=== PATIENT | male | born 1960 | race African-American/Black ===

== ENCOUNTER 2024-01-30 10:00 | Emergency (ER) | payer OTHER ==
[2024-01-30] VITALS (22 sets, daily range): BP systolic 113–202; BP diastolic 66–111
[2024-01-30] MEDS ORDERED: SODIUM CHLORIDE 0.9% 1,000 ML IV ONE ×2 (10:10→11:30)
[2024-01-30] MEDS ORDERED: ISOVUE-300 (Iopamidol) 100 ML SDV IV ONE ×2 (10:10)
[2024-01-30 10:34] LABS: BASO% 0.6 % (0-3); EOS% 1.8 % (0-8); HEMOGLOBIN 15.7 g/dl (14.0-18.0); IMMATURE GRANULOCYTES 0.2 % (0.0-5.0); LYMPH% 39.6 % (15-41); MEAN CELL VOLUME 100.6 fL CALC (80.0-100.0); MEAN CORPUSCULAR HGB 31.6 pG CALC (26.0-32.0); MEAN CORPUSCULAR HGB CONC 31.4 g/dL CAL (32.0-36.0); MONO% 9.2 % (2-13); NEUT# 2.36 thou/uL (1.82-7.42); NEUT% 48.6 % (42-76); RED BLOOD COUNT 4.97 mill/uL (4.70-6.10); RED CELL DISTRI WIDTH 13.6 % (11.5-15.5)
[2024-01-30] MEDS ORDERED: LORazepam 2 MG/ML ONE (10:35)
[2024-01-30] MEDS ORDERED: MIDAZOLAM HCL 2 MG/2 ML VIAL IV ONE (10:40)
[2024-01-30] MEDS ORDERED: ROCURONIUM BROMIDE 10 MG/ML 5ML VIAL IV ONE (10:40)
[2024-01-30] MEDS ORDERED: PROPOFOL 100 ML IV ONE ×2 (10:40→15:20)
[2024-01-30] MEDS ORDERED: KETAMINE HCL 50 MG/ML 10 ML VIAL IV ONE (10:40)
[2024-01-30 10:55] LABS: ALBUMIN 4.7 g/dL (3.2-5.0); ALKALINE PHOSPHATASE 71 u/l (38-126); ANION GAP 22 (6-22 (CALC)); BILIRUBIN, TOTAL 0.8 mg/dL (0.2-1.3); BUN 12 mg/dL (8-23); BUN/CREATININE RATIO 7 (12-20 (CALC)); CARBON DIOXIDE 16 mmol/l (22-30); CHLORIDE 110 mmol/l (95-108); CREATININE 1.7 mg/dL (0.7-1.3); ESTIMATED GFR 45 ML/MIN (>=90 (CALC)); ETHYL ALCOHOL 0 mg/dl (0-30); LIPASE 462 u/l (23-300); POTASSIUM 4.5 mmol/l (3.5-5.1); SGOT/AST 48 u/l (19-48); SODIUM 144 mmol/l (137-146); TOTAL PROTEIN 8.4 g/dL (6.3-8.2)
[2024-01-30 12:28] LABS: URINE BILIRUBIN - DIPSTICK Negative (NEGATIVE); URINE BLOOD DIPSTICK Small (NEGATIVE); URINE GLUCOSE - DIPSTICK Negative (NEGATIVE); URINE KETONE Negative (NEGATIVE); URINE LEUK ESTERASE Negative (NEGATIVE); URINE NITRITE - DIPSTICK Negative (Negative); URINE PROTEIN - DIPSTICK Negative (NEG-TRACE); URINE SPECIFIC GRAVITY 1.015; URINE UROBILINOGEN - DIPSTICK 0.2 E.U./dL (0.2)
[2024-01-30 12:39] LABS: URINE COLOR Yellow; URINE EPITHELIAL CELLS FEW EPI/hpf (0-FEW)
== END 2024-01-30 15:55 | disposition short-term general hospital (02) | DRG 101 ==
LOC: ED 10:00
PROVIDERS: Family Medicine
PROC: 0BH17EZ Insertion of Endotracheal Airway into Trachea, Via Natural or Artificial Opening (ICD-10-PCS; principal; 2024-01-30)
PROC: 06HY33Z Insertion of Infusion Device into Lower Vein, Percutaneous Approach (ICD-10-PCS; 2024-01-30)
DX: G40.901 Epilepsy, unspecified, not intractable, with status epilepticus (principal); Z04.1 Encounter for examination and observation following transport accident
CPT/HCPCS: J1953; J2060; Q9967